=== PATIENT | male | born 1975 | race Caucasian/White ===

== ENCOUNTER 2019-02-25 12:01 | Emergency (ER) | payer SELFPAY ==
[2019-02-25] MEDS ORDERED: IPRATROPIUM/ALBUTEROL (0.5MG/3MG) NEB INH ONE (12:11)
[2019-02-25] MEDS ORDERED: 0.9 % SODIUM CHLORIDE 1,000 ML BAG IV ONE (12:11)
[2019-02-25] MEDS ORDERED: METHYLPREDNISOLONE PF 125MG/VIAL IVP ONE (12:14)
--- NOTE | 2019-02-25 12:15 | Emergency Department Record ---
History of Present Illness - General Stated Complaint: RICARDA/PNEUMONIA Time Seen by Provider: 02/25/19 12:07 Source: Patient Mode of Arrival: Ambulatory Limitations: No limitations - History of Present Illness Initial Comments: 43 yo male presents with cough, wheezing, and shortness of breath. He states he was diagnosed with pneumonia one week ago at [facility]. He was treated with antibiotics, breathing treatments, and steroids. He reports he significantly improved until last night. The cough, wheezing, and shortness of breath returned. He is a smoker. He denies a fever. He states he has pain all over making it hard to breath. MD Complaint: Cough, Shortness of breath -: Days(s) (1) Severity: Moderate Quality: Aching Consistency: Constant Improves With: Nothing Worsens With: Coughing Known History Of: Recurrent pneumonia Context: Recent URI Associated Symptoms: Cough - Related Data Home Oxygen Therapy: No Previous Rx's Medication Instructions Recorded Doxycycline Hyclate 100 mg PO BID #20 cap 02/25/19 Allergies Allergy/AdvReac Type Severity Reaction Status Date / Time erythromycin base Allergy HIVES Verified 02/25/19 12:11 Penicillins Allergy HIVES Verified 02/25/19 12:11 Review of Systems Constitutional: Reports: Malaise, Weakness. Denies: Chills, Fever Eyes: Denies: Eye discharge ENT: Reports: Congestion Respiratory: Reports: Cough, Dyspnea, Wheezes. Denies: Hemoptysis, Stridor Cardiovascular: Reports: Chest pain (Hurts to cough). Denies: Edema, Palpitations, Syncope Endocrine: Denies: Fatigue, Polydipsia, Polyuria Gastrointestinal: Denies: Abdominal pain, Diarrhea, Nausea, Vomiting Genitourinary: Denies: Dysuria, Frequency, Hematuria Musculoskeletal: Reports: Myalgia (hurts all over). Denies: Arthralgia, Back pain Skin: Denies: Bruising, Change in color, Rash Neurological: Denies: Headache Psychiatric: Denies: Anxiety Hematological/Lymphatic: Denies: Easy bleeding, Easy bruising Physical Exam - General General Appearance: Alert, Oriented x3, Cooperative, No acute distress Limitations: No limitations - Head Head exam: Atraumatic, Normal inspection - Eye Eye exam: Normal appearance, PERRL. negative: Conjunctival injection, Scleral icterus - ENT ENT exam: Normal exam Ear exam: Normal external inspection Nasal Exam: Discharge (clear, moderate) Mouth exam: Normal external inspection Teeth exam: Normal inspection Throat exam: Normal inspection - Neck Neck exam: Normal inspection. negative: Lymphadenopathy, Tenderness - Respiratory Respiratory exam: Decreased breath sounds, Prolonged expiratory, Rhonchi, W heezes. negative: Normal lung sounds bilaterally, Accessory muscle use - Cardiovascular Cardiovascular Exam: Regular rate, Normal rhythm, Normal heart sounds - GI/Abdominal GI/Abdominal exam: Soft. negative: Tenderness - Rectal Rectal exam: Deferred - exam: Deferred - Extremities Extremities exam: Normal inspection. negative: Pedal edema, Tenderness - Back Back exam: Reports: CVA tenderness (R), CVA tenderness (L), Other (Tender all over) - Neurological Neurological exam: Alert, Oriented X3 - Psychiatric Psychiatric exam: Normal affect, Normal mood. negative: Agitated, Anxious - Skin Skin exam: Dry, Intact, Normal color, Warm Course The vitals were reviewed and are normal - Reevaluation(s) Reevaluation #1: 02/25/19 12:38 No prior visits on EMR No visits on [facility] will be contacted 02/25/19 12:58 The CBC was reviewed. The WBC is 17. This may be elevated due to acute infection as well as recent steroid use The BMP is normal [facility] was contacted an a request for medical records was made 02/25/19 12:58 02/25/19 13:20 The BMP is normal The Influenza are negative The CXR was reviewed. RLL infiltrate with small effusion. 02/25/19 13:21 Repeat vitals are normal 02/25/19 13:41 02/25/19 14:21 The [facility] records were reviewed of the ED visit and XR report. RUL infiltrate noted, treated with Levaquin, Steroid, and Inhaler. WBC then was 23. Decreased to 17 today. No hypoxia, he is non labored. No fever. He has been resting comfortably while waiting for records with normal work of breathing. Given his allergy list he will be given Doxycycline I recommend extending the course of antibiotics 02/25/19 14:27 The patient is doing very well He is ready for DC I will have RT add a spacer with instructions to his inhaler. He states he was unsure exactly how it worked from the prior ED visit. 02/25/19 14:33 No hypxia in the ED, Non labored No immediate indication for admission Doxycycline provided with prescription and GoodRx card ($14) Medical Decision Making - Lab Data Result diagrams: 02/25/19 12:30 02/25/19 12:30 Disposition Disposition: Discharge Clinical Impression: Pneumonia Qualifiers: Pneumonia type: due to unspecified organism Laterality: right Lung location: lower lobe of lung Qualified Code(s): J18.9 - Pneumonia, unspecified organism Disposition: Home, Self-Care Condition: (1) Good Instructions: Community Acquired Pneumonia (ED) Additional Instructions: Review this ER visit and the tests performed with your family doctor Call your doctor for the next available follow up appointment or return here in the next 1-3 days if you feel you are not improving Return immediately to the ER for a recheck if worse, any new concerns or questions Take the antibiotic as directed until gone. Use the inhaler with a spacer every 4 hours as instructed Prescriptions: Doxycycline Hyclate 100 mg PO BID #20 cap Time of Disposition: 14:28 Quality - Quality Measures Quality Measures: N/A - Blood Pressure Screening Does Patient Have Any of the Following: No Blood Pressure Classification: Pre-Hypertensive BP Reading Systolic Measurement: 135 Diastolic Measurement: 84 Screening for High Blood Pressure: < Pre-Hypertensive BP, F/U Documented > [[id number]] Pre-Hypertensive Follow-up Interventions: Referral to alternative/primary care provider.
[2019-02-25 12:45] LABS: HEMATOCRIT 40.1 % (42.0-52.0); HEMOGLOBIN 12.7 gm/dl (14.0-18.0); MEAN CELL VOLUME 92.2 fl (81-97); MEAN CORPUSCULAR HGB CONC 31.7 g/dl (32-36); MEAN PLATELET VOLUME 8.3 fl (7.4-10.4); PLATELET COUNT 598 K/uL (130-400); RED BLOOD COUNT 4.35 M/uL (4.40-5.70); RED CELL DISTRIBUTION WIDTH 14.3 % (11.5-14.5)
[2019-02-25 12:46] LABS: MEAN CORPUSCULAR HEMOGLOBIN 29.1 pg (27-33)
[2019-02-25 12:48] LABS: BLOOD UREA NITROGEN 12 mg/dL (6-20); CREATININE 0.7 mg/dL (0.7-1.2); EST GLOMERULAR FILTRATION RATE > 60 mL/min
[2019-02-25 12:51] LABS: GLUCOSE,RANDOM 125 mg/dL (74-109)
[2019-02-25 12:52] LABS: PLATELET ESTIMATE INCREASED (NORMAL)
[2019-02-25 12:54] LABS: INFLUENZA A NEGATIVE (NEGATIVE); INFLUENZA B NEGATIVE (NEGATIVE)
[2019-02-25] MEDS ORDERED: CEFTRIAXONE 1GM/50ML BAG 1 GM/50 ML BAG IVPB ONE (13:01)
--- NOTE | 2019-02-25 13:15 | RADIOLOGY REPORT ---
EXAMINATION: Two View Chest Radiographs EXAM DATE: 02/25/2019 1:01 PM TECHNIQUE: Frontal and lateral views INDICATION: cough, recent pneumonia COMPARISON: None ENCOUNTER: Not applicable FINDINGS: Cardiomediastinal structures unremarkable. Right lower lobe infiltrate. Small right pleural effusion. No pneumothorax. IMPRESSION: 1. Right lower lobe infiltrate 2. Small right pleural effusion Dictated by: Dylan Franks MD on 02/25/2019 1:12 PM. .
[2019-02-25 13:21] LABS: ALKALINE PHOSPHATASE 99 U/L (40-129); ALT/SGPT 15 U/L (<41); AST/SGOT 11 U/L (10.0-50.0); BILIRUBIN,DIRECT < 0.2 mg/dL (0-0.3); TOTAL PROTEIN 7.5 g/dL (6.6-8.7)
[2019-02-25] MEDS ORDERED: DOXYCYCLINE HYCLATE 100 MG CAPSULE PO ONE (14:23)
== END 2019-02-25 14:46 | disposition home or self-care (01) ==
LOC: ER 12:01
DX: J18.9 Pneumonia, unspecified organism (principal); R06.02 Shortness of breath; F17.210 Nicotine dependence, cigarettes, uncomplicated
CPT/HCPCS: 71046; 80048; 80076; 85027; 87400; 94640; 96365; 96375; 99284; J0696; J2930; J7030